=== PATIENT | male | born 1965 | race African-American/Black ===

== ENCOUNTER → 2021-04-23 | Outpatient (CLI) | payer MEDICAID ==
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
== END ==
LOC: KCIC 13:00
PROVIDERS: ATTEND Family Medicine
DX: S22.32XA Fracture of one rib, left side, initial encounter for closed fracture (principal); S62.102G Fracture of unspecified carpal bone, left wrist, subsequent encounter for fracture with delayed healing; S09.90XD Unspecified injury of head, subsequent encounter; R91.8 Other nonspecific abnormal finding of lung field; X58.XXXA Exposure to other specified factors, initial encounter; Y93.89 Activity, other specified; Y92.89 Other specified places as the place of occurrence of the external cause; Y99.8 Other external cause status
CPT/HCPCS: 70260; 71101; 73110